=== PATIENT | male | born 1935 | race Caucasian/White ===

== ENCOUNTER 2017-08-26 08:37 | Inpatient (IN) | payer MEDICARE, OTHER ==
[2017-08-26] VITALS (10 sets, daily range): BP systolic 160–197; BP diastolic 84–93; PULSE 72–93; RESP 16–18; TEMP 96.8–97.7; O2SAT 97–100
[~2017-08-26] VITALS: Ht 152.4 cm; Wt 65.8 kg
[~2017-08-26 08:37] MED LIST: AMIT10 PO; ENAL20TA PO; GLYB5TAB3 OR; HYDR12.56 PO; METF-324 PO; PROS5TAB2 PO; SIMV40TA OR; SITA100 PO
[2017-08-26] MEDS ORDERED: SODIUM CHLOR 0.9% 1000 ML INJ 1,000 ML IV ONE ×2 (08:42→10:15)
[2017-08-26] MEDS ORDERED: SODIUM CHLORIDE 0.9% FLUSH 10 ML FLUSH IVF PRN (08:45)
--- NOTE | 2017-08-26 08:50 | PD ---
HPI Chief Complaint: Neuro Symptoms/ Deficits Time Seen by Provider: 08:43 Travel History International Travel<30 days: No Contact w/Intl Traveler<30days: No Traveled to known affect area: No History of Present Illness HPI Patient is a 81-year-old male with history of hypertension and diabetes, presents to emergency room for evaluation of left-sided weakness. Patient reports that he woke up from sleep around 7 AM this morning and felt weak on his left side. Patient reports that he tried to use the restroom, reports that he fell to the ground 2 times due to this weakness. did call EMS for help but declined ambulance to the ER. Patient was brought to ER by his . Patient denies history of CVA in the past. He does not take any anticoagulants. Patient reports that he has subjective weakness in the left side, he denies any headache or dizziness at this time. Patient denies any chest pain or shortness of breath. PFSH Past Medical History Cancer: No Cardiovascular Problems: Yes (HTN) High Cholesterol: Yes Diabetes: Yes Diminished Hearing: No Endocrine: Yes Hypertension: Yes Immune Disorder: No Musculoskeletal: No Neurologic: No Psychiatric: No Reproductive: No Respiratory: No Past Surgical History Abdominal Surgery: Yes (HERNIA) Cholecystectomy: Yes Tonsillectomy: Yes Other Surgery: Yes (HERNIA) Social History Alcohol Use: Yes (OCC) Tobacco Use: Yes (PIPE) Substance Use: No Allergies-Medications (Allergen,Severity, Reaction): Coded Allergies: No Known Allergies (Verified , 08/26/17) Reported Meds & Prescriptions Reported Meds & Active Scripts Active Reported Januvia (Sitagliptin Phosphate) 100 Mg Tab 100 Mg PO DAILY Finasteride 5 Mg Tab 5 Mg PO DAILY Do not crush. Glipizide 5 Mg Tab 5 Mg PO BIDAC Take 30 minutes before a meal Amitriptyline (Amitriptyline HCl) 10 Mg Tab 10 Mg PO HS Simvastatin 40 Mg Tab 40 Mg PO HS Enalapril (Enalapril Maleate) 20 Mg Tab 20 Mg PO DAILY Review of Systems General / Constitutional: No: Fever Eyes: No: Visual changes HENT: No: Headaches Cardiovascular: No: Chest Pain or Discomfort Respiratory: No: Shortness of Breath Gastrointestinal: No: Abdominal Pain Genitourinary: No: Dysuria Musculoskeletal: No: Pain Skin: No Rash Neurologic: Positive: Weakness, Ataxia Psychiatric: No: Depression Endocrine: No: Polydipsia Hematologic/Lymphatic: No: Easy Bruising Physical Exam Narrative GENERAL: moderate distress SKIN: Focused skin assessment warm/dry. HEAD: Atraumatic. Normocephalic. EYES: Pupils equal and round. No scleral icterus. No injection or drainage. ENT: No nasal bleeding or discharge. Mucous membranes pink and moist. Patient with left sided facial droop NECK: Trachea midline. No JVD. CARDIOVASCULAR: Regular rate and rhythm. No murmur appreciated. RESPIRATORY: No accessory muscle use. Clear to auscultation. Breath sounds equal bilaterally. GASTROINTESTINAL: Abdomen soft, non-tender, nondistended. Hepatic and splenic margins not palpable. MUSCULOSKELETAL: No obvious deformities. No clubbing. No cyanosis. No edema. NEUROLOGICAL: Awake and alert. Motor grossly within normal limits. Normal speech. Patient with left-sided facial droop, patient with an NIH scale of 1 PSYCHIATRIC: Appropriate mood and affect; insight and judgment normal. Data Data Last Documented VS Vital Signs Date Time Temp Pulse Resp B/P (MAP) Pulse Ox O2 Delivery O2 Flow Rate FiO2 08/26/17 09:23 75 16 171/86 (114) 98 Nasal Cannula 2.00 08/26/17 08:37 97.6 Orders Orders Troponin I (08/26/17 08:42) Ckmb (Isoenzyme) Profile (08/26/17 08:42) Complete Blood Count With Diff (08/26/17 08:42) Basic Metabolic Panel (Bmp) (08/26/17 08:42) Magnesium (Mg) (08/26/17 08:42) Prothrombin Time / Inr (Pt) (08/26/17 08:42) Act Partial Throm Time (Ptt) (08/26/17 08:42) B-Type Natriuretic Peptide (08/26/17 08:42) Chest, Single Ap (08/26/17 08:42) Electrocardiogram (08/26/17 08:42) Oxygen Administration (08/26/17 08:42) Iv Access Insert/Monitor (08/26/17 08:42) Oximetry (08/26/17 08:42) Sodium Chlor 0.9% 1000 Ml Inj (Ns 1000 M (08/26/17 08:42) Sodium Chloride 0.9% Flush (Ns Flush) (08/26/17 08:45) Ct Brain W/O Iv Contrast(Rout) (08/26/17 08:42) Bedside Glucose NASRIN.CSUGAR (08/26/17 08:44) Aspirin (Aspirin) (08/26/17 09:15) Labs Laboratory Tests Test 08/26/17 08:37 White Blood Count 9.0 TH/MM3 Red Blood Count 4.29 MIL/MM3 Hemoglobin 12.4 GM/DL Hematocrit 37.7 % Mean Corpuscular Volume 87.8 FL Mean Corpuscular Hemoglobin 28.8 PG Mean Corpuscular Hemoglobin Concent 32.8 % Red Cell Distribution Width 12.6 % Platelet Count 232 TH/MM3 Mean Platelet Volume 9.0 FL Neutrophils (%) (Auto) 72.4 % Lymphocytes (%) (Auto) 15.4 % Monocytes (%) (Auto) 11.1 % Eosinophils (%) (Auto) 0.9 % Basophils (%) (Auto) 0.2 % Neutrophils # (Auto) 6.5 TH/MM3 Lymphocytes # (Auto) 1.4 TH/MM3 Monocytes # (Auto) 1.0 TH/MM3 Eosinophils # (Auto) 0.1 TH/MM3 Basophils # (Auto) 0.0 TH/MM3 CBC Comment DIFF FINAL Differential Comment Prothrombin Time 10.6 SEC Prothromb Time International Ratio 1.0 RATIO Activated Partial Thromboplast Time 24.2 SEC Blood Urea Nitrogen 28 MG/DL Creatinine 1.60 MG/DL Random Glucose 185 MG/DL Calcium Level 9.1 MG/DL Magnesium Level 2.0 MG/DL Sodium Level 140 MEQ/L Potassium Level 3.7 MEQ/L Chloride Level 104 MEQ/L Carbon Dioxide Level 27.2 MEQ/L Anion Gap 9 MEQ/L Estimat Glomerular Filtration Rate 42 ML/MIN Total Creatine Kinase 65 U/L Troponin I LESS THAN 0.02 NG/ML B-Type Natriuretic Peptide 106 PG/ML [facility] Medical Decision Making Medical Screen Exam Complete: Yes Emergency Medical Condition: Yes Medical Record Reviewed: Yes Interpretation(s) BS 189 EKG at 0905: NSR at 81bpm, qt/qtc: 413/450, no acute st or t wave changes, pvc' s Differential Diagnosis Differential includes ICH, CVA, TIA Narrative Course 81-year-old male who presents to emergency room complaints of left-sided deficits - patient reports that he woke up at 7 AM with the symptoms. Patient with no history of CVA in the past. 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 An IV line was established, labs drawn. Patient was brought to the CT scanner immediately. Overall, patient reports that symptoms (left sided weakness) is improving Vital Signs Date Time Temp Pulse Resp B/P (MAP) Pulse Ox O2 Delivery O2 Flow Rate FiO2 08/26/17 09:23 75 16 171/86 (114) 98 Nasal Cannula 2.00 08/26/17 09:05 76 16 160/84 (109) 98 Nasal Cannula 2.00 08/26/17 08:40 99 Nasal Cannula 2.00 08/26/17 08:40 16 99 Nasal Cannula 2.00 08/26/17 08:39 78 16 99 Nasal Cannula 2.00 08/26/17 08:37 97.6 93 16 197/93 (127) 97 Laboratory Tests Test 08/26/17 08:37 White Blood Count 9.0 TH/MM3 (4.0-11.0) Red Blood Count 4.29 MIL/MM3 (4.50-5.90) Hemoglobin 12.4 GM/DL (13.0-17.0) Hematocrit 37.7 % (39.0-51.0) Mean Corpuscular Volume 87.8 FL (80.0-100.0) Mean Corpuscular Hemoglobin 28.8 PG (27.0-34.0) Mean Corpuscular Hemoglobin Concent 32.8 % (32.0-36.0) Red Cell Distribution Width 12.6 % (11.6-17.2) Platelet Count 232 TH/MM3 (150-450) Mean Platelet Volume 9.0 FL (7.0-11.0) Neutrophils (%) (Auto) 72.4 % (16.0-70.0) Lymphocytes (%) (Auto) 15.4 % (9.0-44.0) Monocytes (%) (Auto) 11.1 % (0.0-8.0) Eosinophils (%) (Auto) 0.9 % (0.0-4.0) Basophils (%) (Auto) 0.2 % (0.0-2.0) Neutrophils # (Auto) 6.5 TH/MM3 (1.8-7.7) Lymphocytes # (Auto) 1.4 TH/MM3 (1.0-4.8) Monocytes # (Auto) 1.0 TH/MM3 (0-0.9) Eosinophils # (Auto) 0.1 TH/MM3 (0-0.4) Basophils # (Auto) 0.0 TH/MM3 (0-0.2) CBC Comment DIFF FINAL Differential Comment Prothrombin Time 10.6 SEC (9.8-11.6) Prothromb Time International Ratio 1.0 RATIO Activated Partial Thromboplast Time 24.2 SEC (24.3-30.1) Blood Urea Nitrogen 28 MG/DL (7-18) Creatinine 1.60 MG/DL (0.60-1.30) Random Glucose 185 MG/DL (74-106) Calcium Level 9.1 MG/DL (8.5-10.1) Magnesium Level 2.0 MG/DL (1.5-2.5) Sodium Level 140 MEQ/L (136-145) Potassium Level 3.7 MEQ/L (3.5-5.1) Chloride Level 104 MEQ/L (98-107) Carbon Dioxide Level 27.2 MEQ/L (21.0-32.0) Anion Gap 9 MEQ/L (5-15) Estimat Glomerular Filtration Rate 42 ML/MIN (>89) Total Creatine Kinase 65 U/L (39-308) Troponin I LESS THAN 0.02 NG/ML B-Type Natriuretic Peptide 106 PG/ML (0-100) Last Impressions Head CT 08/26/17841 Signed Impressions: Service Date/Time: Saturday, August 26, 2017 08:43 - CONCLUSION: 1. No focal or acute intracranial hemorrhage. 2. Bilateral cortical atrophy overlying the frontal lobes. Carlos Back MD Chest X-Ray 08/26/17841 Signed Impressions: Service Date/Time: Saturday, August 26, 2017 09:06 - CONCLUSION: Normal examination for a patient of this age. Carlos Back MD Patient reevaluated, patient reports that his weakness is improving but has not completely resolved. I reviewed all labs and all studies with patient and his in detail. Discussed with him the patient is not a lytic candidate given that he woke up 7am with these symptoms. Plan to admit to hospital at this time for further workup. Case reviewed with Dr. Joyner who accepts pt to service Diagnosis Primary Impression: CVA (cerebral vascular accident) Qualified Codes: I63.9 - Cerebral infarction, unspecified Additional Impression: Renal insufficiency Admitting Information Admitting Physician Requests: Admit Ingrid Gannon DO Aug 26, 2017 08:50
--- NOTE | 2017-08-26 08:57 | RADRPT ---
EXAM DATE/TIME: 08/26/2017 08:43 [facility] COMPARISON: No previous studies available for comparison. INDICATIONS : Fall this morning. Left sided weakness and facial droop. RADIATION DOSE: 57.69 CTDIvol (mGy) MEDICAL HISTORY : Hypertension. SURGICAL HISTORY : Cholecystectomy. ENCOUNTER: Initial ACUITY: 1 day PAIN SCALE: 4/10 LOCATION: cranial TECHNIQUE: Multiple contiguous axial images were obtained of the head. Using automated exposure control and adj ustment of the mA and/or kV according to patient size, radiation dose was kept as low as reasonably a chievable to obtain optimal diagnostic quality images. DICOM format image data is available electro nically for review and comparison. FINDINGS: CEREBRUM: The ventricles are normal for age. There is bilateral cortical atrophy overlying the frontal lobes. T his is characteristic for patient's age. No evidence of midline shift, mass lesion, hemorrhage or acu te infarction. No extra-axial fluid collections are seen. POSTERIOR FOSSA: The cerebellum and brainstem are intact. The 4th ventricle is midline. The cerebellopontine angle i s unremarkable. EXTRACRANIAL: The visualized portion of the orbits is intact. SKULL: The calvaria is intact. No evidence of skull fracture. CONCLUSION: 1. No focal or acute intracranial hemorrhage. 2. Bilateral cortical atrophy overlying the frontal lobes. Carlos Back MD on August 26, 2017 at 8:55 Board Certified Radiologist. This report was verified electronically.
[2017-08-26 08:58] LABS: AUTOMATED NEUTROPHIL # 6.5 TH/MM3 (1.8-7.7); BASOPHIL % 0.2 % (0.0-2.0); EOSINOPHIL # 0.1 TH/MM3 (0-0.4); EOSINOPHIL % 0.9 % (0.0-4.0); HEMATOCRIT 37.7 % (39.0-51.0); HEMO FLAGS DIFF FINAL; LYMPH % 15.4 % (9.0-44.0); LYMPHOCYTE # 1.4 TH/MM3 (1.0-4.8); MEAN CELL VOLUME 87.8 FL (80.0-100.0); MEAN CORPUSCULAR HEMOGLOBIN 28.8 PG (27.0-34.0); MEAN CORPUSCULAR HGB CONC 32.8 % (32.0-36.0); MONO % 11.1 % (0.0-8.0); NEUT % 72.4 % (16.0-70.0); PLATELET COUNT 232 TH/MM3 (150-450); RED BLOOD COUNT 4.29 MIL/MM3 (4.50-5.90); RED CELL DISTRIBUTION WIDTH 12.6 % (11.6-17.2)
[2017-08-26 09:06] LABS: CHLORIDE 104 MEQ/L (98-107); POTASSIUM 3.7 MEQ/L (3.5-5.1); SODIUM (NA) 140 MEQ/L (136-145)
[2017-08-26 09:09] LABS: ANION GAP 9 MEQ/L (5-15); APTT (PATIENT) 24.2 SEC (24.3-30.1); BICARBONATE 27.2 MEQ/L (21.0-32.0); BLOOD UREA NITROGEN 28 MG/DL (7-18); PROTHROMBIN TIME - PATIENT 10.6 SEC (9.8-11.6)
[2017-08-26 09:12] LABS: GLOMERULAR FILTRATION RATE 42 ML/MIN (>89)
[2017-08-26] MEDS ORDERED: ASPIRIN 325 MG TAB PO ONE (09:15)
--- NOTE | 2017-08-26 09:17 | RADRPT ---
EXAM DATE/TIME: 08/26/2017 09:06 [facility] COMPARISON: No previous studies available for comparison. INDICATIONS : Syncopal episode this morning. MEDICAL HISTORY : Hypertension. SURGICAL HISTORY : Cholecystectomy. ENCOUNTER: Initial ACUITY: 1 day PAIN SCORE: 0/10 LOCATION: Bilateral chest FINDINGS: A single view of the chest demonstrates the lungs to be symmetrically aerated without evidence of mas s, infiltrate or effusion. The cardiomediastinal contours are unremarkable. Osseous structures are intact. CONCLUSION: Normal examination for a patient of this age. Carlos Back MD on August 26, 2017 at 9:15 Board Certified Radiologist. This report was verified electronically.
[2017-08-26 09:18] LABS: CREATINE KINASE 65 U/L (39-308)
[2017-08-26] MEDS ORDERED: SIMV40TA PO (09:36)
[2017-08-26] MEDS ORDERED: AMIT10TA6 PO (09:36)
[2017-08-26] MEDS ORDERED: ENAL20TA PO (09:36)
[2017-08-26] MEDS ORDERED: FINA5TAB2 PO (09:36)
[2017-08-26] MEDS ORDERED: GLIP5TAB8 PO (09:36)
[2017-08-26] MEDS ORDERED: SITA1TAB2 PO (09:37)
[2017-08-26] MEDS ORDERED: SODIUM CHLORIDE 0.9% FLUSH 5 ML FLUSH IV FLUSH PRN (10:00)
[2017-08-26] MEDS ORDERED: MULT-65 PO (11:08)
[2017-08-26] MEDS ORDERED: VITA100036 PO (11:08)
[2017-08-26] MEDS ORDERED: VITA10002 PO (11:08)
--- NOTE | 2017-08-26 13:09 | RADRPT ---
EXAM DATE/TIME: 08/26/2017 12:17 [facility] COMPARISON: CT BRAIN W/O CONTRAST, August 26, 2017, 8:43. INDICATIONS : Stroke. Left side weakness. MEDICAL HISTORY : Hypertension. Diabetes mellitus type 2. SURGICAL HISTORY : Cholecystectomy. Inguinal hernia repair. Tonsillectomy. ENCOUNTER: Initial ACUITY: 1 day PAIN SCORE: 0/10 LOCATION: Head TECHNIQUE: Multiplanar, multisequence MRI of the brain was performed without contrast. FINDINGS: There is evidence of a small focal signal abnormality within the expected region of the lateral aspec t of the right thalamus on the diffusion-weighted images indicating tiny acute lacunar infarct. Clin ical correlation is recommended. Mild periventricular and subcortical white matter small vessel isch emic changes are noted bilaterally. Diffuse cerebral atrophy is noted. There is an old lacunar infa rct within the right thalamus also. No acute hemorrhage, midline shift or extraaxial fluid collectio ns are noted. CONCLUSION: 1. Focal sigmoid abnormality within the expected region of the lateral aspect of the right thalamus on the diffusion-weighted images indicating tiny acute lacunar infarct. 2. Diffuse cerebral atrophy. 3. Mild periventricular and subcortical white matter small vessel ischemic changes bilaterally. 4. Old lacunar infarct within the right thalamus also. 5. No acute hemorrhage, midline shift or extraaxial fluid collections. Pete Pozo MD on August 26, 2017 at 12:51 Board Certified Radiologist. This report was verified electronically.
[2017-08-26] MEDS ORDERED: DEXTROSE 50% IN WATER 50 ML VIAL(D50) IV PUSH PRN (13:15)
[2017-08-26] MEDS ORDERED: GLUCAGON 1 MG/ML VIAL OTHER PRN (13:15)
--- NOTE | 2017-08-26 13:17 | RADRPT ---
EXAM DATE/TIME: 08/26/2017 12:17 [facility] COMPARISON: No previous studies available for comparison. INDICATIONS : Left sided weakness. Stroke. MEDICAL HISTORY : Hypertension. Diabetes mellitus type 2. SURGICAL HISTORY : Tonsillectomy. Cholecystectomy. Inguinal hernia repair. ENCOUNTER: Initial ACUITY: 1 day PAIN SCORE: 0/10 LOCATION: Head Please note a normal MRA of the brain does not entirely exclude the possibility of a small aneurysm, nor the possibility of distal intracranial vessel disease. TECHNIQUE: 3D time of flight MRA was performed. Source images, multiplanar STS MIP, and 3D volume MIP reconstru ctions were reviewed. FINDINGS: There is severe focal segmental stenosis involving the proximal portion of the right posterior cerebr al artery. The mid and distal portions of the right posterior cerebral artery demonstrate adequate f illing. The left posterior cerebral artery is patent throughout its course. The basilar artery is p atent without thickened stenosis or occlusion. The left vertebral artery is dominant. The upper mos t portion of the right vertebral artery is very small in caliber. There is focal segmental stenosis, occlusion of the distal branch of the right middle cerebral artery . There is adequate filling of the branch distal to the severe stenosis/short segment occlusion. Th e proximal portion of the right middle cerebral artery is patent. The left middle cerebral artery is patent without significant stenosis or occlusion. The right A1 segment is very small in caliber and may be occluded distally. The bilateral anterior cerebral arteries fill from a patent anterior comm unicating artery and the left A1 segment which is widely patent. There is no aneurysm. The upper ce rvical, petrous, cavernous and supraclinoid internal carotid arteries are patent without significant stenosis or occlusion. CONCLUSION: 1. 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 2. Focal severe segmental stenosis/short segment occlusion involving a distal branch of the right mi ddle cerebral artery. 3. Severe stenosis or short segment occlusion of the distal portion of the right A1 segment. Pete Pozo MD on August 26, 2017 at 12:55 Board Certified Radiologist. This report was verified electronically.
--- NOTE | 2017-08-26 13:20 | RADRPT ---
EXAM DATE/TIME: 08/26/2017 12:00 [facility] COMPARISON: No previous studies available for comparison. INDICATIONS : Cerebrovascular accident. MEDICAL HISTORY : Hypertension. Diabetic. SURGICAL HISTORY : Cholecystectomy. Tonsillectomy. Hernia repair. ENCOUNTER: Initial ACUITY: 1 day PAIN SCORE: 0/10 LOCATION: Bilateral neck PEAK SYSTOLIC VELOCITIES (cm/sec): ICA/CCA RATIO: Right: 1.0 Left: 0.9 ICA: Right: 65 Left: 76 CCA: Right: 67 Left: 81 ECA: Right: 60 Left: 105 VERTEBRAL: Right: 39 antegrade Left: 59 antegrade Elevated flow velocities and ICA/CCA ratios have been found to correlate with increased degrees of vessel stenosis, calculated as percentage of diameter relative to a normal segment of distal ICA/CCA FINDINGS: RIGHT CAROTID: Mild atherosclerotic plaquing at the bifurcation. No significant stenosis is visualized. The wavefor ms are within normal limits. LEFT CAROTID: Mild atherosclerotic plaquing at the bifurcation. No significant stenosis is visualized. The wavefor ms are within normal limits. VERTEBRAL ARTERIES: Antegrade flow is seen in both vertebral arteries. MISCELLANEOUS: None. CONCLUSION: 1. Mild atherosclerotic plaquing at both carotid bifurcations. 2. No focal high grade or hemodynamically significant stenosis. Carlos Back MD on August 26, 2017 at 13:18 Board Certified Radiologist. This report was verified electronically.
--- NOTE | 2017-08-26 13:26 | HHI.HP ---
[facility] Service [facility] Primary Care Physician Shay Lay, DO Admission Diagnosis CVA Diagnoses: Chief Complaint: Left-sided weakness Travel History International Travel<30 Days: No Contact w/Intl Traveler <30 Da: No Traveled to Known Affected Are: No History of Present Illness This patient is a very pleasant 81-year-old gentleman with a history of hypertension and diabetes who had acute onset of left-sided weakness earlier this morning. He did come to the emergency room with his . He notes no chest pain or shortness of breath. He has not lost consciousness. He does have a pretty decent left arm and left leg weakness with left facial droop. Patient came to the emergency room to have a normal CT of the head with out any change condition per him. The patient was not a thrombolytic candidate due to unclear onset in etiology. The patient did wake up at 7 AM when the symptoms were already present. He has been admitted to the hospital for further evaluation of likely acute infarct. Review of Systems Constitutional: DENIES: Diaphoretic episodes, Fatigue, Fever, Weight gain, Weight loss, Chills, Dizziness, Change in appetite, Night Sweats Endocrine: DENIES: Heat/cold intolerance, Polydipsia, Polyuria, Polyphagia Eyes: DENIES: Blurred vision, Diplopia, Eye inflammation, Eye pain, Vision loss , Photosensitivity, Double Vision Ears, nose, mouth, throat: DENIES: Tinnitus, Hearing loss, Vertigo, Nasal discharge, Oral lesions, Throat pain, Hoarseness, Ear Pain, Running Nose, Epistaxis, Sinus Pain, Toothache, Odynophagia Respiratory: DENIES: Apneas, Cough, Snoring, Wheezing, Hemoptysis, Sputum production, Shortness of breath Cardiovascular: DENIES: Chest pain, Palpitations, Syncope, Dyspnea on Exertion , PND, Lower Extremity Edema, Orthopnea, Claudication Gastrointestinal: DENIES: Abdominal pain, Black stools, Bloody stools, Constipation, Diarrhea, Nausea, Vomiting, Difficulty Swallowing, Anorexia Genitourinary: DENIES: Sexual dysfunction, Urinary frequency, Urinary incontinence, Urgency, Hematuria, Dysuria, Nocturia, Penile Discharge, Testicular Pain, Testicular Swelling Musculoskeletal: DENIES: Joint pain, Muscle aches, Stiffness, Joint Swelling, Back pain, Neck pain Integumentary: DENIES: Abnormal pigmentation, Nail changes, Pruritus, Rash Hematologic/lymphatic: DENIES: Bruising, Lymphadenopathy Immunologic/allergic: DENIES: Eczema, Urticaria Neurologic: COMPLAINS OF: Abnormal gait (cutely and due to weakness), Localized weakness, DENIES: Headache, Paresthesias, Seizures, Speech Problems, Tremor, Poor Balance Psychiatric: DENIES: Anxiety, Confusion, Mood changes, Depression, Hallucinations, Agitation, Suicidal Ideation, Homicidal Ideation, Delusions Except as stated in HPI: all other systems reviewed are Neg Past Family Social History Past Medical History htn Dm2 with neuropathy BPH Past Surgical History hernia, inguinal appy, tonsils gb Reported Medications reviewed in the EMR Allergies: Coded Allergies: No Known Allergies (Verified , 08/26/17) Active Ordered Medications reviewed in the EMR Family History Father from a heart attack at 65, mother at 52 with postsurgical complications Social History , lives with his , patient does smoke a pipe daily, alcohol infrequently Physical Exam Vital Signs Vital Signs Date Time Temp Pulse Resp B/P (MAP) Pulse Ox O2 Delivery O2 Flow Rate FiO2 08/26/17 12:00 96.8 73 18 177/91 (119) 100 08/26/17 10:55 72 16 167/86 (113) 99 2.00 08/26/17 10:14 72 16 174/89 (117) 99 Nasal Cannula 2.00 08/26/17 10:09 78 16 99 Nasal Cannula 2.00 08/26/17 09:45 78 16 179/89 (119) 99 Nasal Cannula 2.00 08/26/17 09:23 75 16 171/86 (114) 98 Nasal Cannula 2.00 08/26/17 09:05 76 16 160/84 (109) 98 Nasal Cannula 2.00 08/26/17 08:40 99 Nasal Cannula 2.00 08/26/17 08:40 16 99 Nasal Cannula 2.00 08/26/17 08:39 78 16 99 Nasal Cannula 2.00 08/26/17 08:37 97.6 93 16 197/93 (127) 97 Physical Exam GENERAL: This is a well-nourished, well-developed patient, in no apparent distress. SKIN: No rashes, ecchymoses or lesions. Cool and dry. HEAD: Atraumatic. Normocephalic. No temporal or scalp tenderness. EYES: Pupils equal round and reactive. Extraocular motions intact. No scleral icterus. No injection or drainage. ENT: Nose without bleeding, purulent drainage or septal hematoma. Throat without erythema, tonsillar hypertrophy or exudate. Uvula midline. Airway patent. NECK: Trachea midline. No JVD or lymphadenopathy. Supple, nontender, no meningeal signs. CARDIOVASCULAR: Regular rate and rhythm without murmurs, gallops, or rubs. RESPIRATORY: Clear to auscultation. Breath sounds equal bilaterally. No wheezes , rales, or rhonchi. GASTROINTESTINAL: Abdomen soft, non-tender, nondistended. No hepato-splenomegaly , or palpable masses. No guarding. MUSCULOSKELETAL: Extremities without clubbing, cyanosis, or edema. No joint tenderness, effusion, or edema noted. No calf tenderness. Negative Homans sign bilaterally. NEUROLOGICAL: Awake and alert. Cranial nerves II through XII intact. Motor and sensory grossly within normal limits. left facial droop2 out of 5 muscle strength on the left, right 5/5. Normal speech. Laboratory Laboratory Tests Test 08/26/17 08:37 White Blood Count 9.0 Red Blood Count 4.29 Hemoglobin 12.4 Hematocrit 37.7 Mean Corpuscular Volume 87.8 Mean Corpuscular Hemoglobin 28.8 Mean Corpuscular Hemoglobin Concent 32.8 Red Cell Distribution Width 12.6 Platelet Count 232 Mean Platelet Volume 9.0 Neutrophils (%) (Auto) 72.4 Lymphocytes (%) (Auto) 15.4 Monocytes (%) (Auto) 11.1 Eosinophils (%) (Auto) 0.9 Basophils (%) (Auto) 0.2 Neutrophils # (Auto) 6.5 Lymphocytes # (Auto) 1.4 Monocytes # (Auto) 1.0 Eosinophils # (Auto) 0.1 Basophils # (Auto) 0.0 CBC Comment DIFF FINAL Differential Comment Prothrombin Time 10.6 Prothromb Time International Ratio 1.0 Activated Partial Thromboplast Time 24.2 Blood Urea Nitrogen 28 Creatinine 1.60 Random Glucose 185 Calcium Level 9.1 Magnesium Level 2.0 Sodium Level 140 Potassium Level 3.7 Chloride Level 104 Carbon Dioxide Level 27.2 Anion Gap 9 Estimat Glomerular Filtration Rate 42 Total Creatine Kinase 65 Troponin I LESS THAN 0.02 B-Type Natriuretic Peptide 106 Result Diagram: 08/26/1737 08/26/17836 Imaging Last Impressions Head CT 08/26/17841 Signed Impressions: Service Date/Time: Saturday, August 26, 2017 08:43 - CONCLUSION: 1. No focal or acute intracranial hemorrhage. 2. Bilateral cortical atrophy overlying the frontal lobes. Carlos Back MD Chest X-Ray 08/26/17841 Signed Impressions: Service Date/Time: Saturday, August 26, 2017 09:06 - CONCLUSION: Normal examination for a patient of this age. Carlos Back MD Capjuanjose VTE Risk Assessment Caprini VTE Risk Assessment: Mod/High Risk (score >= 2) Caprini Risk Assessment Model Point Value = 1 Point Value = 2 Point Value = 3 Point Value = 5 Age 41-60 Minor surgery BMI > 25 kg/m2 Swollen legs Varicose veins or History of unexplained or recurrent spontaneous Oral contraceptives or hormone replacement Sepsis (< 1 month) Serious lung disease, including pneumonia (< 1 month) Abnormal pulmonary function Acute myocardial infarction Congestive heart failure (< 1 month) History of inflammatory bowel disease Medical patient at bed rest Age 61-74 Arthroscopic surgery Major open surgery (> 45 min) Laparoscopic surgery (> 45 min) Malignancy Confined to bed (> 72 hours) Immobilizing plaster cast Central venous access Age >= 75 History of VTE Family history of VTE Factor V Leiden Prothrombin [id number] Lupus anticoagulant Anticardiolipin antibodies Elevated serum homocysteine Heparin-induced thrombocytopenia Other congenital or acquired thrombophilia Stroke (< 1 month) Elective arthroplasty Hip, pelvis, or leg fracture Acute spinal cord injury (< 1 month) Prophylaxis Regimen Total Risk Factor Score Risk Level Prophylaxis Regimen 0-1 Low Early ambulation 2 Moderate Order ONE of the following: *Sequential Compression Device (SCD) *Heparin 5000 units SQ BID 3-4 Higher Order ONE of the following medications: *Heparin 5000 units SQ TID *Enoxaparin/Lovenox 40 mg SQ daily (WT < 150 kg, CrCl > 30 mL/min) *Enoxaparin/Lovenox 30 mg SQ daily (WT < 150 kg, CrCl > 10-29 mL/min) *Enoxaparin/Lovenox 30 mg SQ BID (WT < 150 kg, CrCl > 30 mL/min) AND/OR *Sequential Compression Device (SCD) 5 or more Highest Order ONE of the following medications: *Heparin 5000 units SQ TID (Preferred with Epidurals) *Enoxaparin/Lovenox 40 mg SQ daily (WT < 150 kg, CrCl > 30 mL/min) *Enoxaparin/Lovenox 30 mg SQ daily (WT < 150 kg, CrCl > 10-29 mL/min) *Enoxaparin/Lovenox 30 mg SQ BID (WT < 150 kg, CrCl > 30 mL/min) AND *Sequential Compression Device (SCD) Assessment and Plan Problem List: (1) CVA (cerebral vascular accident) ICD Code: I63.9 - Cerebral infarction, unspecified Status: Acute Plan: With left-sided hemiparesis, continue with rehabilitation efforts, neuro consult pending Permissive hypertension asa Will change to atorvastatin Echo and imaging in progress Continue telemetry (2) DM2 (diabetes mellitus, type 2) ICD Code: E11.9 - Type 2 diabetes mellitus without complications Plan: Continue with the junivia and glipizide, swallow eval pending (3) HTN (hypertension) ICD Code: I10 - Essential (primary) hypertension (4) BPH (benign prostatic hyperplasia) ICD Code: N40.0 - Benign prostatic hyperplasia without lower urinary tract symptoms Plan: Continue Proscar Code Status Full code Physician Certification 2 Midnight Certification Type: Admission for Inpatient Services Order for Inpatient Services The services are ordered in accordance with Medicare regulations or non- Medicare payer requirements, as applicable. In the case of services not specified as inpatient-only, they are appropriately provided as inpatient services in accordance with the 2-midnight benchmark. Estimated LOS (days): 3 3 days is the estimated time the patient will need to remain in the hospital, assuming treatment plan goals are met and no additional complications. Post-Hospital Plan: Not yet determined Problem Qualifiers (1) CVA (cerebral vascular accident): Qualified Codes: I63.9 - Cerebral infarction, unspecified Kate Joyner MD Aug 26, 2017 13:26
[2017-08-26] MEDS ORDERED: ENOXAPARIN SODIUM 40 MG/0.4 ML SYRINGE SQ SCH (14:00)
[2017-08-26 14:58] LABS: HEMOGLOBIN A1a 1.3 %; HEMOGLOBIN A1b 2.8 %; HEMOGLOBIN Ao 77.9 %; HEMOGLOBIN LA1C 2.8 %; HEMOGLOBIN P3 5.4 %
--- NOTE | 2017-08-26 15:40 | PD.CONS ---
History of Present Illness Service Neurology Consult Requested By medical Reason for Consult stroke Primary Care Physician Shay Lay DO History of Present Illness 81-year-old gentleman with a history of hypertension and diabetes who had acute onset of left-sided weakness earlier this morning. mri brain shows an acute rt subcortical infarct. no previous hx of stroke. not on any blood thinners, not even aspirin. no head/neck trauma. no hx of afib/dvt. Review of Systems as above and admit hp Past Family Social History Past Medical History htn Dm2 with neuropathy BPH Past Surgical History hernia, inguinal appy, tonsils Reported Medications reviewed in the EMR Allergies: Coded Allergies: No Known Allergies (Verified , 08/26/17) Active Ordered Medications reviewed in the EMR Family History Father from [place] Social History , lives with his , patient does smoke a pipe daily, alcohol infrequently Review of Systems All other ROS: ROS reviewed as documented in chart Past Family Social History Allergies: Coded Allergies: No Known Allergies (Verified , 08/26/17) Active Ordered Medications Current Medications Medications (Trade) Dose Ordered Sig/Sammi Route Start Time Stop Time Status Last Admin (NS Flush) 2 ml BID IV FLUSH 08/26/17 21:00 (NS Flush) 2 ml UNSCH PRN IV FLUSH 08/26/17 10:00 (D50w (Vial) Inj) 50 ml UNSCH PRN IV PUSH 08/26/17 13:15 (Glucagon Inj) 1 mg UNSCH PRN OTHER 08/26/17 13:15 (NovoLOG SUPPLEMENTAL SCALE) 1 ACHS SLIDING SCALE SQ 08/26/17 17:00 (Elavil) 10 mg HS PO 08/26/17 21:00 (Proscar) 5 mg DAILY PO 08/27/17 09:00 (Glucotrol) 5 mg BIDAC PO 08/26/17 16:00 (Januvia) 100 mg DAILY PO 08/27/17 09:00 (Lipitor) 40 mg DAILY PO 08/27/17 09:00 (Aspirin) 325 mg DAILY PO 08/27/17 09:00 (Lovenox Inj) 40 mg Q24H SQ 08/26/17 14:00 Exam I&O / VS 08/26/17 08/26/17 08/27/17 15:00 23:00 07:00 Intake Total 1000 ml Balance 1000 ml Intake IV Total 1000 ml Vital Signs Date Time Temp Pulse Resp B/P (MAP) Pulse Ox O2 Delivery O2 Flow Rate FiO2 08/26/17 12:00 96.8 73 18 177/91 (119) 100 08/26/17 10:55 72 16 167/86 (113) 99 2.00 08/26/17 10:14 72 16 174/89 (117) 99 Nasal Cannula 2.00 08/26/17 10:09 78 16 99 Nasal Cannula 2.00 08/26/17 09:45 78 16 179/89 (119) 99 Nasal Cannula 2.00 08/26/17 09:23 75 16 171/86 (114) 98 Nasal Cannula 2.00 08/26/17 09:05 76 16 160/84 (109) 98 Nasal Cannula 2.00 08/26/17 08:40 99 Nasal Cannula 2.00 08/26/17 08:40 16 99 Nasal Cannula 2.00 08/26/17 08:39 78 16 99 Nasal Cannula 2.00 08/26/17 08:37 97.6 93 16 197/93 (127) 97 General: Alert and Oriented, No acute distress Eye: EOMI Respiratory: Non-labored respirations Cardiology: Normal rate Musculoskeletal: ROM Neurologic: Alert, Oriented, Normal DTR's Psychiatric: Cooperative, Appropriate mood & affect Exam Comments alert, ox 3, follows, dysarthric speech. eomi, vff, ou 3-2mm, left lower facial weakness, left shoulder shrug 4/5, arm 0/5, left leg 0/5. pin in both legs upto mid calve-chronic, Review/Management Diagnosis/Plan: (1) Acute ischemic right MCA stroke ICD Codes: I63.511 - Cerebral infarction due to unspecified occlusion or stenosis of right middle cerebral artery Status: Acute Plan: rt thalamocapsular, lateral thalamic infarct -appears to be secondary to advanced intracranial arteriosclerotic dz -carotids ok -mra brain with diffuse stenotic/occlusive dz recs aggrenox bid ldl <70 bp/dm control f/u echo tele rehab planning tomorrow and outpatient f/u (2) Intracranial arteriosclerosis ICD Codes: I67.2 - Cerebral atherosclerosis Status: Chronic (3) DM2 (diabetes mellitus, type 2) ICD Codes: E11.9 - Type 2 diabetes mellitus without complications Status: Chronic (4) HTN (hypertension) ICD Codes: I10 - Essential (primary) hypertension Status: Acute Problem Qualifiers (1) DM2 (diabetes mellitus, type 2): (2) HTN (hypertension): Qualified Codes: I10 - Essential (primary) hypertension Ramiro Ferris MD Aug 26, 2017 15:40
[2017-08-26] MEDS: INSULIN ASPART SUPPLEMENTAL SCALE SQ SCH ×2 (16:48→21:04)
[2017-08-26] MEDS: glipiZIDE 5 MG TAB PO SCH (16:48)
[2017-08-26] MEDS ORDERED: ACETAMINOPHEN 500 MG CPLT PO PRN (17:30)
[2017-08-26] MEDS: ACETAMINOPHEN/CODEINE 300 MG/30 MG TAB PO PRN (18:11)
[2017-08-26] MEDS: SODIUM CHLORIDE 0.9% FLUSH 5 ML FLUSH IV FLUSH SCH (21:04)
[2017-08-26] MEDS: AMITRIPTYLINE HCL 10 MG TAB PO SCH (21:04)
[2017-08-26] MEDS: DIPYRIDAMOLE/ASPIRIN 200 MG/25 MG CAP PO SCH (21:04)
--- NOTE | 2017-08-26 21:39 | EKG ---
Date Performed: 08/26/2017 Time Performed: 09:05:28 PTAGE: 81 years EKG: Sinus rhythm WITH OCCASIONAL VENTRICULAR PREMATURE COMPLEXES LEFT ANTERIOR FASCICULAR BLOCK NONSPECIFIC T-WAVE AB NORMALITY SINCE PREVIOUS TRACING, PVC's ARE NEW AND THE AXIS IS SOMEWHAT MORE LEFTWARD. ABNORMAL ECG PREVIOUS TRACING : 09/10/2011 14.16 DOCTOR: Judson Jenkins Interpretating Date/Time 08/26/2017 21:38:23
[2017-08-27] VITALS (7 sets, daily range): BP systolic 162–192; BP diastolic 77–99; PULSE 82–89; RESP 14–20; TEMP 95.9–97.5; O2SAT 96–100
[2017-08-27] MEDS: glipiZIDE 5 MG TAB PO SCH ×2 (06:04→16:09)
[2017-08-27] MEDS: FINASTERIDE 5 MG TAB PO SCH (08:08)
[2017-08-27] MEDS: ATORVASTATIN 40 MG TAB PO SCH (08:09)
[2017-08-27] MEDS: INSULIN ASPART SUPPLEMENTAL SCALE SQ SCH ×4 (08:10→21:00)
[2017-08-27] MEDS: SODIUM CHLORIDE 0.9% FLUSH 5 ML FLUSH IV FLUSH SCH ×2 (08:12→21:00)
--- NOTE | 2017-08-27 08:17 | MB ---
cc: TAMMIE SNEED MD DATE OF CONSULTATION: 08/27/2017 REASON FOR CONSULTATION CVA. HISTORY OF PRESENT ILLNESS The patient is a very pleasant 81-year-old gentleman with no prior cardiac history, who presented with acute onset of left leg weakness and facial droop. His MRI was notable for an acute lacunar CVA. The patient says that he is beginning to recover some strength and movement in his left leg. He denies any cardiac history whatsoever and says he has never had chest pain, shortness of breath, syncope or even significant cardiac symptoms at all. PAST MEDICAL HISTORY 1. Hypertension. 2. Diabetes. 3. BPH. MEDICATIONS Current medications: 1. Proscar. 2. Januvia. 3. Lipitor 40 mg daily. 4. Elavil 10 mg daily. 5. Aggrenox. 6. Glipizide. ALLERGIES No known drug allergies. PHYSICAL EXAMINATION VITAL SIGNS: Afebrile, pulse 88, respiratory rate 20, BP 192/92, satting 100 on room air. GENERAL: A very pleasant well-appearing elderly gentleman in no distress. NECK: No JVD. LUNGS: Clear to auscultation bilaterally. CARDIOVASCULAR: Regular rate and rhythm. No significant murmurs appreciated. ABDOMEN: Benign. EXTREMITIES: No edema. LABORATORY White count 9.0, hematocrit 37.7, platelets 232. Sodium 140, potassium 3.7, chloride 104, bicarb 27, BUN 28, creatinine 1.6. Troponin is negative x1. EKG EKG shows sinus rhythm with occasional PVCs. No acute ST or T-wave changes. IMAGING Brain MRI showed focal sigmoid abnormality in the lateral aspect of the right thalamus consistent with a tiny acute lacunar infarct, diffuse cerebral atrophy, mild periventricular and subcortical white matter small vessel chronic ischemic changes, old lacunar infarct within the right thalamus, without acute hemorrhage, midline shift or extraaxial fluid collection. IMPRESSION/RECOMMENDATIONS CVA. The patient with chronic small vessel disease has had what seems like a second lacunar CVA as opposed to embolic phenomenon. This is likely due to his cerebral atherosclerosis as well as his hypertension and diabetes. He has already been started on Aggrenox by neurology and I would continue his aggressive risk factor modification. He is already on a statin. I will see him in the office to help with his medical management from here on out. Given the lack of embolic phenomenon I do not at this time believe he requires long-term arrhythmia monitoring though this potentially could change depending on his future course. Thank you again for the opportunity to participate in this patient's care. MD JESSICA Montes/RASHEEDA /8:00 AM /8:06 AM
[2017-08-27] MEDS ORDERED: ASPIRIN 325 MG TAB PO SCH (09:00)
[2017-08-27] MEDS: DIPYRIDAMOLE/ASPIRIN 200 MG/25 MG CAP PO SCH ×2 (09:09→21:01)
[2017-08-27 09:59] LABS: HDL CHOLESTEROL 37.8 MG/DL (40.0-60.0)
[2017-08-27] MEDS ORDERED: diphenhydrAMINE HCL 50 MG CAP PO PRN (10:30)
[2017-08-27] MEDS ORDERED: BISACODYL EC 5 MG TABEC PO ONE (11:00)
--- NOTE | 2017-08-27 11:03 | HHI.PR ---
Subjective Remarks Patient seen and evaluated in follow-up for acute infarct with left-sided weakness. Now started on Aggrenox per neurology. Cardiology consult appreciated. Patient complaining of insomnia due to surroundings and his noisy neighbor. Tolerating Aggrenox well. He is also complaining of constipation Objective Vitals Vital Signs Date Time Temp Pulse Resp B/P (MAP) Pulse Ox O2 Delivery O2 Flow Rate FiO2 08/27/17 08:00 97.5 89 16 178/99 (125) 99 08/27/17 04:00 97.0 88 20 192/92 (125) 100 08/27/17 00:00 96.8 83 18 170/77 (108) 100 08/26/17 20:00 96.8 80 18 194/92 (126) 99 08/26/17 20:00 75 08/26/17 20:00 76 08/26/17 16:00 97.7 83 18 182/84 (116) 97 08/26/17 12:00 96.8 73 18 177/91 (119) 100 I/O 08/26/17 08/26/17 08/26/17 08/27/17 08/27/17 08/27/17 07:00 15:00 23:00 07:00 15:00 23:00 Intake Total 1000 ml 1239 ml 220 ml Output Total 350 ml 100 ml Balance 1000 ml 889 ml 120 ml Intake Oral 240 ml 220 ml IV Total 1000 ml 999 ml Output Urine Total 350 ml 100 ml # Voids 3 1 # Bowel Movements 0 Result Diagram: 08/26/17 0837 08/26/1737 Imaging Last Impressions Head CT 08/26/1742 Signed Impressions: Service Date/Time: Saturday, August 26, 2017 08:43 - CONCLUSION: 1. No focal or acute intracranial hemorrhage. 2. Bilateral cortical atrophy overlying the frontal lobes. Carlos Back MD Chest X-Ray 08/26/17 0842 Signed Impressions: Service Date/Time: Saturday, August 26, 2017 09:06 - CONCLUSION: Normal examination for a patient of this age. Carlos Back MD Head Magnetic Resonance Angiography 08/26/17 0000 Signed Impressions: Service Date/Time: Saturday, August 26, 2017 12:17 - CONCLUSION: 1. 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 2. Focal severe segmental stenosis/short segment occlusion involving a distal branch of the right middle cerebral artery. 3. Severe stenosis or short segment occlusion of the distal portion of the right A1 segment. Pete Pozo MD Carotid Artery Ultrasound 08/26/17 0000 Signed Impressions: Service Date/Time: Saturday, August 26, 2017 12:00 - CONCLUSION: 1. Mild atherosclerotic plaquing at both carotid bifurcations. 2. No focal high grade or hemodynamically significant stenosis. Carlos Back MD Brain MRI 08/26/17 0000 Signed Impressions: Service Date/Time: Saturday, August 26, 2017 12:17 - CONCLUSION: 1. Focal sigmoid abnormality within the expected region of the lateral aspect of the right thalamus on the diffusion-weighted images indicating tiny acute lacunar infarct. 2. Diffuse cerebral atrophy. 3. Mild periventricular and subcortical white matter small vessel ischemic changes bilaterally. 4. Old lacunar infarct within the right thalamus also. 5. No acute hemorrhage, midline shift or extraaxial fluid collections. Pete Pozo MD Objective Remarks GENERAL: This is a well-nourished, well-developed patient, in no apparent distress. CARDIOVASCULAR: Regular rate and rhythm without murmurs, gallops, or rubs. RESPIRATORY: Clear to auscultation. Breath sounds equal bilaterally. No wheezes , rales, or rhonchi. GASTROINTESTINAL: Abdomen soft, non-tender, nondistended. Normal active bowel sounds MUSCULOSKELETAL: Extremities without clubbing, cyanosis, or edema. NEURO: Alert & Oriented x4 to person, place, time, situation. Left leg 3 out of 5, left arm 3 out of 5, left facial droop A/P Problem List: (1) CVA (cerebral vascular accident) ICD Code: I63.9 - Cerebral infarction, unspecified Status: Acute Plan: With left-sided hemiparesis, continue with rehabilitation efforts, neuro consult appreciated, continue statin, hypertensive medicine and rehabilitation efforts Follow-up echo, cardiology consult appreciated Continue with Aggrenox (2) DM2 (diabetes mellitus, type 2) ICD Code: E11.9 - Type 2 diabetes mellitus without complications Status: Chronic Plan: Continue with the jenuvia and glipizide, swallow eval pending (3) HTN (hypertension) ICD Code: I10 - Essential (primary) hypertension Status: Acute (4) BPH (benign prostatic hyperplasia) ICD Code: N40.0 - Benign prostatic hyperplasia without lower urinary tract symptoms Plan: Continue Proscar (5) Constipation ICD Code: K59.00 - Constipation, unspecified Plan: bisacodyl,colace (6) Insomnia ICD Code: G47.00 - Insomnia, unspecified Plan: Benadryl Discharge Planning inpatient rehab v snf, d/w patient and CM Problem Qualifiers (1) CVA (cerebral vascular accident): Qualified Codes: I63.9 - Cerebral infarction, unspecified (2) DM2 (diabetes mellitus, type 2): (3) HTN (hypertension): Qualified Codes: I10 - Essential (primary) hypertension Kate Joyner MD Aug 27, 2017 11:03
[2017-08-27] MEDS: ENOXAPARIN SODIUM 30 MG/0.3 ML SYRINGE SQ SCH (12:10)
--- NOTE | 2017-08-27 17:28 | ECHRPT ---
Indication: cva/tia CONCLUSIONS Normal left ventricular size. Mild concentric left ventricular hypertrophy. The left ventricular systolic function is low normal to mildly reduced with an estimated ejection fr action in the range of 45-50%. Global hypokinesis. 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 Mild mitral annular calcification. Trileaflet aortic valve. Mild aortic valve sclerosis is present. Structurally normal tricuspid valve. There is trace tricuspid valve regurgitation. The estimated pulmonary arterial pressure is 27 mmHg. BP: 180 / 94 HR: 122 Rhythm: Sinus MEASUREMENTS (Male / Female) Normal Values Technical Quality:Fair 2D ECHO LA Systolic Diameter LX 3.5 cm 3.0 - 4.0 / 2.7 - 3.8 cm LV Ejection Fraction MOD 4C 43.1 % LV Cardiac Index MOD 4C 2220.6 cm/minm LV Ejection Fraction 4C AL 46.2 % LV Cardiac Index 4C AL 2448.8 cm/minm M-MODE Aortic Root Diameter MM 3.1 cm AV Cusp Separation MM 1.7 cm DOPPLER AV Peak Velocity 164.0 cm/s AV Peak Gradient 10.8 mmHg LVOT Peak Velocity 90.8 cm/s LVOT Peak Gradient 3.3 mmHg MV Area PHT 5.0 cm Mitral E Point Velocity 42.4 cm/s Mitral A Point Velocity 111.0 cm/s Mitral E to A Ratio 0.4 LV E' Lateral Velocity 5.4 cm/s Mitral E to LV E' Lateral Ratio 7.9 LV E' Septal Velocity 6.3 cm/s Mitral E to LV E' Septal Ratio 6.7 TR Peak Velocity 210.0 cm/s TR Peak Gradient 17.6 mmHg Right Atrial Pressure 10.0 mmHg Pulmonary Artery Systolic Pressu 27.6 mmHg Right Ventricular Systolic Press 27.6 mmHg PV Peak Velocity 138.0 cm/s PV Peak Gradient 7.6 mmHg FINDINGS LEFT VENTRICLE Normal left ventricular size. Mild concentric left ventricular hypertrophy. The left ventricular systolic function is low normal to mildly reduced with an estimated ejection fr action in the range of 45-50%. Global hypokinesis. RIGHT VENTRICLE Normal right ventricular size and systolic function. LEFT ATRIUM The left atrial size is normal. RIGHT ATRIUM The right atrial size is normal. 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 AORTA The aortic root and proximal ascending aorta are normal in size on limited imaging. MITRAL VALVE Structurally normal mitral valve. Mild mitral annular calcification. AORTIC VALVE Trileaflet aortic valve. Mild aortic valve sclerosis is present. TRICUSPID VALVE Structurally normal tricuspid valve. There is trace tricuspid valve regurgitation. The estimated pulmonary arterial pressure is 27 mmHg. PULMONARY VALVE No pulmonary valve regurgitation or stenosis. VESSELS The inferior vena cava is normal in size. PERICARDIUM No pericardial effusion. Luan Herrera MD (Electronically Signed) Final Date:27 August 2017 17:26
[2017-08-27] MEDS: ACETAMINOPHEN/CODEINE 300 MG/30 MG TAB PO PRN (17:40)
[2017-08-27] MEDS: DOCUSATE SODIUM 100 MG CAP PO SCH (21:01)
[2017-08-27] MEDS: AMITRIPTYLINE HCL 10 MG TAB PO SCH (21:01)
[2017-08-28] VITALS: BP 183/85; PULSE 83; RESP 20; TEMP 96.9; O2SAT 97
[2017-08-28] MEDS ORDERED: diphenhydrAMINE HCL 25 MG CAP PO ONE
[2017-08-28] MEDS ORDERED: ACETAMINOPHEN 325 MG TAB PO ONE
[2017-08-28 04:00] VITALS: BP 193/90; PULSE 86; RESP 20; TEMP 96.5; O2SAT 98
[2017-08-28] MEDS: glipiZIDE 5 MG TAB PO SCH ×2 (06:49→15:02)
[2017-08-28 08:00] VITALS: BP 144/91; PULSE 93; RESP 20; TEMP 97.4; O2SAT 100
[2017-08-28] MEDS: FINASTERIDE 5 MG TAB PO SCH (08:05)
[2017-08-28] MEDS: DIPYRIDAMOLE/ASPIRIN 200 MG/25 MG CAP PO SCH (08:05)
[2017-08-28] MEDS: ATORVASTATIN 40 MG TAB PO SCH (08:05)
[2017-08-28] MEDS: DOCUSATE SODIUM 100 MG CAP PO SCH (08:05)
[2017-08-28] MEDS: SODIUM CHLORIDE 0.9% FLUSH 5 ML FLUSH IV FLUSH SCH (08:07)
[2017-08-28] MEDS: INSULIN ASPART SUPPLEMENTAL SCALE SQ SCH ×2 (08:07→11:54)
[2017-08-28] MEDS ORDERED: MAGNESIUM HYDROXIDE SUSP 30 ML CUP PO ONE (10:30)
[2017-08-28 12:00] VITALS: BP 118/57; PULSE 91; RESP 18; TEMP 96.9; O2SAT 96
[2017-08-28] MEDS ORDERED: ATOR40TA16 PO (12:55)
[2017-08-28] MEDS ORDERED: AGGR20025 PO (12:55)
[2017-08-28] MEDS ORDERED: DIPH50CA PO (12:55)
--- NOTE | 2017-08-28 12:56 | HHI.DCPOC ---
Discharge Care Plan Diagnosis: (1) CVA (cerebral vascular accident) (2) HTN (hypertension) (3) DM2 (diabetes mellitus, type 2) Goals to Promote Your Health * To prevent worsening of your condition and complications * To maintain your health at the optimal level Directions to Meet Your Goals Take your medications as prescribed Follow your dietary instruction Follow activity as directed Keep your appointments as scheduled Take your immunizations and boosters as scheduled If your symptoms worsen call your PCP, if no PCP go to Urgent Care Center or Emergency Room Smoking is Dangerous to Your Health. Avoid second hand smoke Call the 24-hour hour crisis hotline for domestic abuse at Kate Joyner MD Aug 28, 2017 12:56
--- NOTE | 2017-08-28 12:56 | HHI.PR ---
Subjective Remarks Patient seen and evaluated in follow-up for stroke with left-sided in diuresis. Complaining of constipation. Improved oral intake today. He says he did not sleep well due to severely ill and noisy Roommate. Care plan discussed with patient and spouse Objective Vitals Vital Signs Date Time Temp Pulse Resp B/P (MAP) Pulse Ox O2 Delivery O2 Flow Rate FiO2 08/28/17 12:00 96.9 91 18 118/57 (77) 96 08/28/17 08:00 97.4 93 20 144/91 (108) 100 08/28/17 04:00 96.5 86 20 193/90 (124) 98 08/28/17 00:00 96.9 83 20 183/85 (117) 97 08/27/17 20:30 82 08/27/17 20:00 97.1 88 20 173/95 (121) 99 08/27/17 16:00 96.9 87 14 162/81 (108) 96 I/O 08/27/17 08/27/17 08/27/17 08/28/17 08/28/17 08/28/17 07:00 15:00 23:00 07:00 15:00 23:00 Intake Total 1239 ml 220 ml 356 ml 60 ml Output Total 350 ml 100 ml 100 ml 150 ml Balance 889 ml 120 ml 256 ml 60 ml -150 ml Intake Oral 240 ml 220 ml 356 ml 60 ml IV Total 999 ml Output Urine Total 350 ml 100 ml 100 ml 150 ml # Voids 1 0 1 # Bowel Movements 0 0 0 0 Result Diagram: 08/26/1783608/26/17836 Imaging Last Impressions Head CT 08/26/17841 Signed Impressions: Service Date/Time: Saturday, August 26, 2017 08:43 - CONCLUSION: 1. No focal or acute intracranial hemorrhage. 2. Bilateral cortical atrophy overlying the frontal lobes. Carlos Back MD Chest X-Ray 08/26/17841 Signed Impressions: Service Date/Time: Saturday, August 26, 2017 09:06 - CONCLUSION: Normal examination for a patient of this age. Carlos Back MD Head Magnetic Resonance Angiography 08/26/17 0000 Signed Impressions: Service Date/Time: Saturday, August 26, 2017 12:17 - CONCLUSION: 1. 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 2. Focal severe segmental stenosis/short segment occlusion involving a distal branch of the right middle cerebral artery. 3. Severe stenosis or short segment occlusion of the distal portion of the right A1 segment. Pete Pozo MD Carotid Artery Ultrasound 08/26/17 0000 Signed Impressions: Service Date/Time: Saturday, August 26, 2017 12:00 - CONCLUSION: 1. Mild atherosclerotic plaquing at both carotid bifurcations. 2. No focal high grade or hemodynamically significant stenosis. Carlos Back MD Brain MRI 08/26/17 0000 Signed Impressions: Service Date/Time: Saturday, August 26, 2017 12:17 - CONCLUSION: 1. Focal sigmoid abnormality within the expected region of the lateral aspect of the right thalamus on the diffusion-weighted images indicating tiny acute lacunar infarct. 2. Diffuse cerebral atrophy. 3. Mild periventricular and subcortical white matter small vessel ischemic changes bilaterally. 4. Old lacunar infarct within the right thalamus also. 5. No acute hemorrhage, midline shift or extraaxial fluid collections. Pete Pozo MD Objective Remarks GENERAL: This is a well-nourished, well-developed patient, in no apparent distress. CARDIOVASCULAR: Regular rate and rhythm without murmurs, gallops, or rubs. RESPIRATORY: Clear to auscultation. Breath sounds equal bilaterally. No wheezes , rales, or rhonchi. GASTROINTESTINAL: Abdomen soft, non-tender, nondistended. Normal active bowel sounds MUSCULOSKELETAL: Extremities without clubbing, cyanosis, or edema. NEURO: Alert & Oriented x4 to person, place, time, situation. Left leg 3 out of 5, left arm 3 out of 5, left facial droop A/P Problem List: (1) CVA (cerebral vascular accident) ICD Code: I63.9 - Cerebral infarction, unspecified Status: Acute Plan: With left-sided hemiparesis, continue with rehabilitation efforts, neuro consult appreciated, continue statin, hypertensive medicine and rehabilitation efforts Echo shows reduced EF and global hypokinesis, cardiology consult appreciated, continue medical management with SHANE inhibitor as tolerated Continue with Aggrenox (2) DM2 (diabetes mellitus, type 2) ICD Code: E11.9 - Type 2 diabetes mellitus without complications Status: Chronic Plan: Continue with the Januvia and glipizide, modified diet with ADA recommendations (3) HTN (hypertension) ICD Code: I10 - Essential (primary) hypertension Status: Acute (4) BPH (benign prostatic hyperplasia) ICD Code: N40.0 - Benign prostatic hyperplasia without lower urinary tract symptoms Plan: Continue Proscar (5) Constipation ICD Code: K59.00 - Constipation, unspecified Plan: Milk of magnesia (6) Insomnia ICD Code: G47.00 - Insomnia, unspecified Plan: Benadryl Discharge Planning inpatient rehab v snf Problem Qualifiers (1) CVA (cerebral vascular accident): Qualified Codes: I63.9 - Cerebral infarction, unspecified (2) DM2 (diabetes mellitus, type 2): (3) HTN (hypertension): Qualified Codes: I10 - Essential (primary) hypertension Kate Joyner MD Aug 28, 2017 12:56
[2017-08-28] MEDS: ENOXAPARIN SODIUM 30 MG/0.3 ML SYRINGE SQ SCH (15:02)
== END 2017-08-28 16:09 | DRG 65 ==
LOC: PHED 08:37 → PHEDA 09:51 → PH3B 10:54 → OBSVTOIN 13:20
PROVIDERS: ADMIT Hospitalist; ATTEND Hospitalist
DX: I63.511 Cerebral infarction due to unspecified occlusion or stenosis of right middle cerebral artery (principal); G81.94 Hemiplegia, unspecified affecting left nondominant side; E11.40 Type 2 diabetes mellitus with diabetic neuropathy, unspecified; R29.701 NIHSS score 1; F17.290 Nicotine dependence, other tobacco product, uncomplicated; I10 Essential (primary) hypertension; G47.00 Insomnia, unspecified; I67.2 Cerebral atherosclerosis; K59.00 Constipation, unspecified; N40.0 Benign prostatic hyperplasia without lower urinary tract symptoms; Z79.84 Long term (current) use of oral hypoglycemic drugs
CPT/HCPCS: 70450; 70544; 70551; 71010; 80048; 80061; 82550; 82948; 83036; 83735; 83880; 84484; 85025; 85610; 85730; 93005; 93306; 93880; G8987-GO; G8987-GP; G8988-GO; G8988-GP; J1650; J1815; J7030